=== PATIENT | male | born 1950 | race Caucasian/White ===

== ENCOUNTER 2018-08-01 03:09 | Inpatient (IN) | payer MEDICARE, BC ==
[2018-08-01] MEDS ORDERED: NACL 0.9% 3 ML SYG IV (04:30)
[2018-08-01] MEDS ORDERED: ONDANSETRON 4 MG INJ IV (04:30)
[2018-08-01] MEDS ORDERED: BISACODYL (EC) 5 MG TAB PO (04:30)
[2018-08-01] MEDS ORDERED: DOCUSATE SODIUM 100 MG CAP PO (04:30)
[2018-08-01] MEDS: FUROSEMIDE 40 MG INJ IV (05:12)
[2018-08-01] MEDS: METOLAZONE 2.5 MG TAB PO (05:12)
[2018-08-01 05:34] LABS: ADD MAN DIFF? NO
[2018-08-01 05:36] LABS: HAAIG REFLEX REFLEX FILED
[2018-08-01 05:38] LABS: WHITE BLOOD COUNT 10.3 10^3/ul (4.8-10.8)
[2018-08-01 05:38] LABS: BASOPHILS % 0.2 % (0.0-2.0); EOSINOPHILS % 0.4 % (0.0-7.0); HEMATOCRIT 46.1 % (42.0-52.0); HEMOGLOBIN 14.8 g/dl (14.0-18.0); LYMPHOCYTES % 9.8 % (15.0-51.0); MEAN CORPUSCULAR HEMOGLOBIN 31.3 pg (29.0-33.0); MEAN CORPUSCULAR HGB CONC 32.1 g/dl (32.0-37.0); MEAN CORPUSCULAR VOLUME 97.5 fl (82.0-101.0); MEAN PLATELET VOLUME 10.6 fl (7.4-10.4); MONOCYTE # 0.8 10^3/ul (0.3-0.9); MONOCYTES % 7.5 % (0.0-11.0); NEUTROPHIL # 8.3 10^3/ul (1.6-7.5); NEUTROPHILS % 81.1 % (39.0-77.0); PLATELET COUNT 192 10^3/UL (140-415); RED BLOOD COUNT 4.73 10^6/ul (4.70-6.10); RED CELL DISTRIBUTION WIDTH 12.7 % (11.5-14.5)
[2018-08-01 05:59] LABS: HEMOGLOBIN A1C 4.5 % (0-5.9)
[2018-08-01 06:04] LABS: ALANINE AMINOTRANSFERASE 22 IU/L (13-69); ALBUMIN 3.7 g/dl (3.3-4.9); ALBUMIN/GLOBULIN RATIO 1.42; ALKALINE PHOSPHATASE 52 IU/L (42-121); ANION GAP 10 (5-13); ASPARTATE AMINO TRANSFERASE 24 IU/L (15-46); BILIRUBIN,INDIRECT 1.1 mg/dl (0-1.1); BILIRUBIN,TOTAL 1.1 mg/dl (0.2-1.3); BLOOD UREA NITROGEN 73 mg/dl (7-20); CALCIUM 9.1 mg/dl (8.4-10.2); CARBON DIOXIDE 19 mmol/L (21-31); CHLORIDE 119 mmol/L (97-110); CREATININE 3.07 mg/dl (0.61-1.24); Estimated GFR 20 mL/min (>60); GLUCOSE 101 mg/dl (70-220); MAGNESIUM 2.4 mg/dl (1.7-2.5); POTASSIUM 5.2 mmol/L (3.5-5.1); SODIUM 148 mmol/L (135-144); TOTAL PROTEIN 6.3 g/dl (6.1-8.1)
[2018-08-01 06:06] LABS: URIC ACID 10.9 mg/dl (3.1-7.9)
[2018-08-01 06:17] LABS: AMMONIA < 9 umol/l (9-30)
[2018-08-01 06:30] LABS: CHOLESTEROL 170 mg/dl (100-200)
[2018-08-01 06:30] LABS: CHOL/HDL RATIO 3.4 RATIO; HDL CHOLESTEROL 50 mg/dl (30-78); LDL CHOLESTEROL,CALCULATED 106 mg/dl; TRIGLYCERIDES 72 mg/dl (0-149)
[2018-08-01 06:40] LABS: B-TYPE NATRIURETIC PEPTIDE 1070 PG/ML (0-125)
[2018-08-01 07:10] LABS: HEPATITIS B SURFACE ANTIGEN NEGATIVE (NEGATIVE)
[2018-08-01 07:26] LABS: HEPATITIS B SURFACE ANTIBODY NEGATIVE (NEGATIVE)
[2018-08-01 07:27] LABS: HEPATITIS B CORE ANTIBODY NEGATIVE (NEGATIVE); HEPATITIS C VIRAL ANTIBODY NEGATIVE (NEGATIVE)
[2018-08-01 08:13] LABS: OSMOLALITY 323 mOsm/kg (280-295)
[2018-08-01 10:35] LABS: ADD UMIC YES; UR ASCORBIC ACID NEGATIVE (NEGATIVE); UR BILIRUBIN (Dip) NEGATIVE (NEGATIVE); UR BLOOD (Dip) 1+ mg/dL (NEGATIVE); UR CLARITY CLEAR (CLEAR); UR COLOR COLORLESS (YELLOW); UR GLUCOSE (Dip) NEGATIVE (NEGATIVE); UR KETONES (Dip) NEGATIVE (NEGATIVE); UR LEUKOCYTE ESTERASE (Dip) NEGATIVE Leu/ul (NEGATIVE); UR MUCUS FEW /HPF (NONE SEEN); UR NITRITE (Dip) NEGATIVE (NEGATIVE); UR RBC 0 /HPF (0-5); UR SPECIFIC GRAVITY (Dip) 1.006 (1.003-1.030); UR TOTAL PROTEIN (Dip) NEGATIVE (NEGATIVE); UR UROBILINOGEN (Dip) NEGATIVE (NEGATIVE); UR WBC 0 /HPF (0-5)
[2018-08-01] MEDS: DEXTROSE 5%-0.45% NACL 1,000 ML IV ×2 (10:39→22:30)
[2018-08-01 11:10] LABS: OSMOLALITY,URINE 323 mOsm/kg (250-1200)
[2018-08-01 11:14] LABS: SODIUM,URINE RANDOM 135 mmol/L (30-90)
[2018-08-01 11:14] LABS: CREATININE,URINE RANDOM 13.21 mg/dl (20-370)
[2018-08-01 11:15] LABS: CREATININE,URINE RANDOM 12.94 mg/dl (20-370); PROTEIN/CREAT RATIO 1.23 RATIO
[2018-08-01 12:15] LABS: COMPLEMENT C3 71 mg/dl (88-165)
[2018-08-01 12:15] LABS: COMPLEMENT C4 26 mg/dl (14-44)
[2018-08-01] MEDS: LORAZEPAM 2 MG INJ IV (16:58)
[2018-08-01] MEDS: LORAZEPAM 1 MG TAB PO (22:05)
[2018-08-02] MEDS: DEXTROSE 5%-0.45% NACL 1,000 ML IV ×2 (01:37→10:52)
[2018-08-02 06:19] LABS: ADD MAN DIFF? NO
[2018-08-02 06:29] LABS: WHITE BLOOD COUNT 10.8 10^3/ul (4.8-10.8)
[2018-08-02 06:29] LABS: BASOPHILS % 0.3 % (0.0-2.0); EOSINOPHILS % 0.2 % (0.0-7.0); HEMATOCRIT 48.4 % (42.0-52.0); HEMOGLOBIN 15.6 g/dl (14.0-18.0); LYMPHOCYTES # 0.9 10^3/ul (0.8-2.9); LYMPHOCYTES % 8.7 % (15.0-51.0); MEAN CORPUSCULAR HGB CONC 32.2 g/dl (32.0-37.0); MEAN PLATELET VOLUME 11.1 fl (7.4-10.4); MONOCYTE # 0.8 10^3/ul (0.3-0.9); MONOCYTES % 7.4 % (0.0-11.0); NEUTROPHIL # 8.8 10^3/ul (1.6-7.5); NEUTROPHILS % 82.2 % (39.0-77.0); PLATELET COUNT 208 10^3/UL (140-415); RED BLOOD COUNT 5.04 10^6/ul (4.70-6.10); RED CELL DISTRIBUTION WIDTH 12.5 % (11.5-14.5)
[2018-08-02 06:53] LABS: ANION GAP 11 (5-13); BLOOD UREA NITROGEN 78 mg/dl (7-20); CALCIUM 9.2 mg/dl (8.4-10.2); CARBON DIOXIDE 21 mmol/L (21-31); CHLORIDE 114 mmol/L (97-110); Estimated GFR 24 mL/min (>60); GLUCOSE 120 mg/dl (70-220); POTASSIUM 4.4 mmol/L (3.5-5.1); SODIUM 146 mmol/L (135-144)
[2018-08-02 07:06] LABS: MAGNESIUM 2.2 mg/dl (1.7-2.5)
[2018-08-02 07:06] LABS: PHOSPHORUS 4.8 mg/dl (2.5-4.9)
[2018-08-02 07:16] LABS: HEMOGLOBIN A1C 4.5 % (0-5.9)
[2018-08-02] MEDS: LEVETIRACETAM 1000 MG (PMX) 100 ML IVPB (12:30)
[2018-08-02] MEDS: LEVETIRACETAM 500 MG TAB PO ×2 (12:32→20:55)
[2018-08-02] MEDS: hydrALAzine 20 MG INJ IV (15:32)
[2018-08-03] MEDS: DEXTROSE 5%-0.45% NACL 1,000 ML IV ×3 (00:54→15:05)
[2018-08-03] MEDS: LORAZEPAM 2 MG INJ IV (01:59)
[2018-08-03] MEDS: LEVETIRACETAM 500 MG TAB PO (08:40)
[2018-08-03 10:52] LABS: HAAIG REFLEX REFLEX FILED
[2018-08-03 11:34] LABS: ANION GAP 17 (5-13); BLOOD UREA NITROGEN 79 mg/dl (7-20); CALCIUM 9.1 mg/dl (8.4-10.2); CARBON DIOXIDE 15 mmol/L (21-31); CHLORIDE 110 mmol/L (97-110); CREATININE 3.23 mg/dl (0.61-1.24); Estimated GFR 19 mL/min (>60); GLUCOSE 132 mg/dl (70-220); POTASSIUM 3.9 mmol/L (3.5-5.1); SODIUM 142 mmol/L (135-144)
[2018-08-03 11:45] LABS: COMPLEMENT C3 88 mg/dl (88-165); COMPLEMENT C4 34 mg/dl (14-44)
[2018-08-03 12:06] LABS: HEPATITIS B SURFACE ANTIGEN NEGATIVE (NEGATIVE)
[2018-08-03 12:24] LABS: HEPATITIS B CORE ANTIBODY NEGATIVE (NEGATIVE); HEPATITIS C VIRAL ANTIBODY NEGATIVE (NEGATIVE)
[2018-08-03 13:16] LABS: ANA SCREEN NEGATIVE (NEGATIVE)
[2018-08-03 14:47] LABS: CREATININE, RANDOM URINE 13 mg/dL (20-320); MICROALBUMIN 2.3 mg/dL; MICROALBUMIN/CREATININE RATIO 177 (<30)
[2018-08-03] MEDS: LEVETIRACETAM 750 MG TAB PO (22:19)
[2018-08-04 05:37] LABS: ADD MAN DIFF? NO
[2018-08-04 05:44] LABS: WHITE BLOOD COUNT 9.9 10^3/ul (4.8-10.8)
[2018-08-04 05:44] LABS: BASOPHILS % 0.4 % (0.0-2.0); EOSINOPHILS # 0.1 10^3/ul (0.0-0.5); EOSINOPHILS % 0.8 % (0.0-7.0); HEMOGLOBIN 15.9 g/dl (14.0-18.0); LYMPHOCYTES # 1.1 10^3/ul (0.8-2.9); LYMPHOCYTES % 11.5 % (15.0-51.0); MEAN CORPUSCULAR HEMOGLOBIN 30.7 pg (29.0-33.0); MEAN CORPUSCULAR HGB CONC 32.4 g/dl (32.0-37.0); MEAN CORPUSCULAR VOLUME 94.6 fl (82.0-101.0); MEAN PLATELET VOLUME 10.7 fl (7.4-10.4); MONOCYTES % 9.8 % (0.0-11.0); NEUTROPHIL # 7.5 10^3/ul (1.6-7.5); NEUTROPHILS % 76.1 % (39.0-77.0); PLATELET COUNT 206 10^3/UL (140-415); RED BLOOD COUNT 5.18 10^6/ul (4.70-6.10); RED CELL DISTRIBUTION WIDTH 12.3 % (11.5-14.5)
[2018-08-04 05:58] LABS: ANION GAP 13 (5-13); BLOOD UREA NITROGEN 80 mg/dl (7-20); CALCIUM 8.9 mg/dl (8.4-10.2); CARBON DIOXIDE 19 mmol/L (21-31); CHLORIDE 109 mmol/L (97-110); CREATININE 2.97 mg/dl (0.61-1.24); Estimated GFR 21 mL/min (>60); GLUCOSE 106 mg/dl (70-220); MAGNESIUM 2.1 mg/dl (1.7-2.5); PHOSPHORUS 4.7 mg/dl (2.5-4.9); POTASSIUM 3.9 mmol/L (3.5-5.1); SODIUM 141 mmol/L (135-144)
[2018-08-04] MEDS: METOPROLOL 25 MG TAB PO (09:42)
[2018-08-04] MEDS: LEVETIRACETAM 750 MG TAB PO (09:42)
[2018-08-04] MEDS: BENAZEPRIL 5 MG TAB PO (09:42)
[2018-08-04 13:57] LABS: ANCA SCREEN NEGATIVE (NEGATIVE)
[2018-08-04 17:01] LABS: MYELOPEROXIDASE ANTIBODY <1.0 AI; PROTEINASE-3 ANTIBODY <1.0 AI
[2018-08-04] MEDS: PHENYTOIN 1,250 MG in SOD CHLORIDE 0.9% 150 ML IV (17:22)
[2018-08-04 17:44] LABS: PHENYTOIN (DILANTIN) < 3.0 ug/ml (10.0-20.0)
[2018-08-04 18:31] LABS: ANA SCREEN POSITIVE (NEGATIVE)
[2018-08-04 19:16] LABS: ANA PATTERN HOMOGENEOUS; ANA TITER 1:40 titer
[2018-08-04] MEDS ORDERED: PHENYTOIN 100 MG INJ IV (22:00)
[2018-08-05 06:05] LABS: ADD MAN DIFF? NO
[2018-08-05 06:12] LABS: BASOPHILS % 0.3 % (0.0-2.0); EOSINOPHILS # 0.1 10^3/ul (0.0-0.5); EOSINOPHILS % 0.9 % (0.0-7.0); HEMATOCRIT 47.9 % (42.0-52.0); HEMOGLOBIN 15.5 g/dl (14.0-18.0); LYMPHOCYTES # 1.1 10^3/ul (0.8-2.9); LYMPHOCYTES % 9.2 % (15.0-51.0); MEAN CORPUSCULAR HEMOGLOBIN 31.1 pg (29.0-33.0); MEAN CORPUSCULAR HGB CONC 32.4 g/dl (32.0-37.0); MEAN CORPUSCULAR VOLUME 96.2 fl (82.0-101.0); MONOCYTE # 1.3 10^3/ul (0.3-0.9); MONOCYTES % 11.2 % (0.0-11.0); NEUTROPHIL # 8.9 10^3/ul (1.6-7.5); NEUTROPHILS % 77.3 % (39.0-77.0); PLATELET COUNT 181 10^3/UL (140-415); RED BLOOD COUNT 4.98 10^6/ul (4.70-6.10); RED CELL DISTRIBUTION WIDTH 12.5 % (11.5-14.5)
[2018-08-05 06:12] LABS: WHITE BLOOD COUNT 11.5 10^3/ul (4.8-10.8)
[2018-08-05 06:37] LABS: PHENYTOIN (DILANTIN) 5.5 ug/ml (10.0-20.0)
[2018-08-05 06:54] LABS: ANION GAP 11 (5-13); BLOOD UREA NITROGEN 85 mg/dl (7-20); CALCIUM 8.9 mg/dl (8.4-10.2); CARBON DIOXIDE 20 mmol/L (21-31); CHLORIDE 110 mmol/L (97-110); CREATININE 3.26 mg/dl (0.61-1.24); Estimated GFR 19 mL/min (>60); GLUCOSE 90 mg/dl (70-220); MAGNESIUM 2.2 mg/dl (1.7-2.5); PHOSPHORUS 5.2 mg/dl (2.5-4.9); POTASSIUM 4.4 mmol/L (3.5-5.1); SODIUM 141 mmol/L (135-144)
[2018-08-05] MEDS: PHENYTOIN 100 MG INJ IV ×3 (07:08→21:15)
[2018-08-05] MEDS: PHENYTOIN 500 MG in SOD CHLORIDE 0.9% 100 ML IV (08:51)
[2018-08-05] MEDS: METOPROLOL 25 MG TAB PO (09:50)
[2018-08-05] MEDS: BENAZEPRIL 5 MG TAB PO (09:50)
[2018-08-05 14:14] LABS: PHENYTOIN (DILANTIN) 14.3 ug/ml (10.0-20.0)
[2018-08-05] MEDS: LORAZEPAM 1 MG TAB PO (21:15)
[2018-08-06 06:11] LABS: ADD MAN DIFF? NO
[2018-08-06 06:16] LABS: BASOPHILS % 0.4 % (0.0-2.0); EOSINOPHILS # 0.2 10^3/ul (0.0-0.5); EOSINOPHILS % 1.8 % (0.0-7.0); HEMATOCRIT 48.9 % (42.0-52.0); HEMOGLOBIN 15.5 g/dl (14.0-18.0); LYMPHOCYTES # 0.9 10^3/ul (0.8-2.9); LYMPHOCYTES % 8.7 % (15.0-51.0); MEAN CORPUSCULAR HEMOGLOBIN 30.8 pg (29.0-33.0); MEAN CORPUSCULAR HGB CONC 31.7 g/dl (32.0-37.0); MEAN PLATELET VOLUME 11.4 fl (7.4-10.4); MONOCYTE # 1.4 10^3/ul (0.3-0.9); MONOCYTES % 13.2 % (0.0-11.0); NEUTROPHIL # 8.1 10^3/ul (1.6-7.5); NEUTROPHILS % 74.5 % (39.0-77.0); PLATELET COUNT 171 10^3/UL (140-415); RED BLOOD COUNT 5.04 10^6/ul (4.70-6.10); RED CELL DISTRIBUTION WIDTH 12.5 % (11.5-14.5)
[2018-08-06 06:16] LABS: WHITE BLOOD COUNT 10.9 10^3/ul (4.8-10.8)
[2018-08-06 06:46] LABS: ANION GAP 12 (5-13); BLOOD UREA NITROGEN 92 mg/dl (7-20); CALCIUM 8.9 mg/dl (8.4-10.2); CARBON DIOXIDE 20 mmol/L (21-31); CHLORIDE 110 mmol/L (97-110); CREATININE 3.36 mg/dl (0.61-1.24); Estimated GFR 18 mL/min (>60); GLUCOSE 101 mg/dl (70-220); MAGNESIUM 2.2 mg/dl (1.7-2.5); PHOSPHORUS 4.6 mg/dl (2.5-4.9); POTASSIUM 4.7 mmol/L (3.5-5.1); SODIUM 142 mmol/L (135-144)
[2018-08-06] MEDS: METOPROLOL 25 MG TAB PO (08:33)
[2018-08-06] MEDS: PHENYTOIN 100 MG INJ IV ×2 (08:34→22:15)
[2018-08-06 10:47] LABS: PHENYTOIN (DILANTIN) 9.1 ug/ml (10.0-20.0)
[2018-08-06 16:48] LABS: ANTI-DNA (DOUBLE STRANDED) <95 U/mL (< 301)
[2018-08-07] MEDS: LORAZEPAM 2 MG INJ IV (05:35)
[2018-08-07 05:39] LABS: ADD MAN DIFF? NO
[2018-08-07 05:48] LABS: WHITE BLOOD COUNT 11.5 10^3/ul (4.8-10.8)
[2018-08-07 05:48] LABS: BASOPHIL # 0.1 10^3/ul (0.0-0.1); BASOPHILS % 0.7 % (0.0-2.0); EOSINOPHILS # 0.2 10^3/ul (0.0-0.5); HEMATOCRIT 50.1 % (42.0-52.0); LYMPHOCYTES # 1.2 10^3/ul (0.8-2.9); MEAN CORPUSCULAR HEMOGLOBIN 31.2 pg (29.0-33.0); MEAN CORPUSCULAR HGB CONC 31.9 g/dl (32.0-37.0); MEAN CORPUSCULAR VOLUME 97.7 fl (82.0-101.0); MONOCYTE # 1.2 10^3/ul (0.3-0.9); MONOCYTES % 10.6 % (0.0-11.0); NEUTROPHIL # 8.7 10^3/ul (1.6-7.5); NEUTROPHILS % 75.7 % (39.0-77.0); PLATELET COUNT 154 10^3/UL (140-415); RED BLOOD COUNT 5.13 10^6/ul (4.70-6.10); RED CELL DISTRIBUTION WIDTH 12.6 % (11.5-14.5)
[2018-08-07 06:35] LABS: ANION GAP 11 (5-13); BLOOD UREA NITROGEN 91 mg/dl (7-20); CALCIUM 9.2 mg/dl (8.4-10.2); CARBON DIOXIDE 21 mmol/L (21-31); CHLORIDE 113 mmol/L (97-110); CREATININE 3.14 mg/dl (0.61-1.24); Estimated GFR 20 mL/min (>60); GLUCOSE 98 mg/dl (70-220); MAGNESIUM 2.4 mg/dl (1.7-2.5); PHOSPHORUS 4.3 mg/dl (2.5-4.9); POTASSIUM 5.5 mmol/L (3.5-5.1); SODIUM 145 mmol/L (135-144)
[2018-08-07] MEDS: PHENYTOIN 100 MG INJ IV (09:24)
[2018-08-07] MEDS: SOD CHLORIDE 0.45% 1,000 ML IV (09:25)
[2018-08-07] MEDS: METOPROLOL 25 MG TAB PO (09:25)
[2018-08-07] MEDS: NA POLYST SULFON 15 GM/60 ML BTL PO ×2 (11:03→12:52)
[2018-08-07] MEDS ORDERED: PHENOBARBITAL 65 MG INJ IVPB (11:30)
[2018-08-07] MEDS: DEXTROSE 5% IV (12:53)
[2018-08-07] MEDS: PHENOBARBITAL IV (12:53)
[2018-08-07 15:02] LABS: POTASSIUM 4.9 mmol/L (3.5-5.1)
[2018-08-07 16:06] LABS: HEPATITIS B DELTA ANTIBODY NEGATIVE
[2018-08-07] MEDS: PHENOBARBITAL 32.4 MG TAB PO (21:12)
[2018-08-08] MEDS: SOD CHLORIDE 0.45% 1,000 ML IV ×2 (04:20→17:45)
[2018-08-08 06:21] LABS: PHENOBARBITAL 17.7 mg/L (15.0-40.0)
[2018-08-08 08:24] LABS: ADD MAN DIFF? NO
[2018-08-08 08:33] LABS: BASOPHILS % 0.4 % (0.0-2.0); EOSINOPHILS # 0.3 10^3/ul (0.0-0.5); EOSINOPHILS % 2.6 % (0.0-7.0); HEMATOCRIT 46.6 % (42.0-52.0); LYMPHOCYTES # 1.1 10^3/ul (0.8-2.9); LYMPHOCYTES % 10.4 % (15.0-51.0); MEAN CORPUSCULAR HEMOGLOBIN 31.5 pg (29.0-33.0); MEAN CORPUSCULAR HGB CONC 32.2 g/dl (32.0-37.0); MEAN CORPUSCULAR VOLUME 97.9 fl (82.0-101.0); MEAN PLATELET VOLUME 11.9 fl (7.4-10.4); MONOCYTE # 1.1 10^3/ul (0.3-0.9); NEUTROPHIL # 7.6 10^3/ul (1.6-7.5); NEUTROPHILS % 74.4 % (39.0-77.0); PLATELET COUNT 142 10^3/UL (140-415); RED BLOOD COUNT 4.76 10^6/ul (4.70-6.10); RED CELL DISTRIBUTION WIDTH 12.5 % (11.5-14.5)
[2018-08-08 08:33] LABS: WHITE BLOOD COUNT 10.2 10^3/ul (4.8-10.8)
[2018-08-08 08:58] LABS: ANION GAP 13 (5-13); BLOOD UREA NITROGEN 81 mg/dl (7-20); CALCIUM 8.9 mg/dl (8.4-10.2); CARBON DIOXIDE 20 mmol/L (21-31); CHLORIDE 112 mmol/L (97-110); CREATININE 2.87 mg/dl (0.61-1.24); Estimated GFR 22 mL/min (>60); GLUCOSE 83 mg/dl (70-220); MAGNESIUM 2.3 mg/dl (1.7-2.5); PHOSPHORUS 4.8 mg/dl (2.5-4.9); POTASSIUM 4.3 mmol/L (3.5-5.1); SODIUM 145 mmol/L (135-144)
[2018-08-08] MEDS: METOPROLOL 25 MG TAB PO (09:43)
[2018-08-08] MEDS: PHENOBARBITAL 32.4 MG TAB PO ×2 (09:43→20:57)
[2018-08-08 20:07] LABS: % CRYOCRIT NONE DETECTED (NONE DETECTED)
[2018-08-09] MEDS: SOD CHLORIDE 0.45% 1,000 ML IV ×3 (00:55→18:45)
[2018-08-09 06:06] LABS: ADD MAN DIFF? NO
[2018-08-09 06:07] LABS: WHITE BLOOD COUNT 10.9 10^3/ul (4.8-10.8)
[2018-08-09 06:07] LABS: BASOPHIL # 0.1 10^3/ul (0.0-0.1); BASOPHILS % 0.5 % (0.0-2.0); EOSINOPHILS # 0.2 10^3/ul (0.0-0.5); EOSINOPHILS % 1.9 % (0.0-7.0); HEMATOCRIT 44.3 % (42.0-52.0); HEMOGLOBIN 14.5 g/dl (14.0-18.0); LYMPHOCYTES # 0.9 10^3/ul (0.8-2.9); LYMPHOCYTES % 8.4 % (15.0-51.0); MEAN CORPUSCULAR HGB CONC 32.7 g/dl (32.0-37.0); MEAN CORPUSCULAR VOLUME 94.9 fl (82.0-101.0); MEAN PLATELET VOLUME 11.5 fl (7.4-10.4); MONOCYTE # 1.3 10^3/ul (0.3-0.9); MONOCYTES % 11.7 % (0.0-11.0); NEUTROPHIL # 8.3 10^3/ul (1.6-7.5); NEUTROPHILS % 76.6 % (39.0-77.0); PLATELET COUNT 141 10^3/UL (140-415); RED BLOOD COUNT 4.67 10^6/ul (4.70-6.10); RED CELL DISTRIBUTION WIDTH 12.6 % (11.5-14.5)
[2018-08-09 07:11] LABS: PHENOBARBITAL 21.6 mg/L (15.0-40.0)
[2018-08-09 07:13] LABS: ANION GAP 11 (5-13); BLOOD UREA NITROGEN 78 mg/dl (7-20); CALCIUM 8.8 mg/dl (8.4-10.2); CARBON DIOXIDE 20 mmol/L (21-31); CHLORIDE 114 mmol/L (97-110); CREATININE 2.57 mg/dl (0.61-1.24); Estimated GFR 25 mL/min (>60); GLUCOSE 97 mg/dl (70-220); MAGNESIUM 2.2 mg/dl (1.7-2.5); PHOSPHORUS 3.9 mg/dl (2.5-4.9); POTASSIUM 4.3 mmol/L (3.5-5.1); SODIUM 145 mmol/L (135-144)
[2018-08-09] MEDS: METOPROLOL 25 MG TAB PO (08:36)
[2018-08-09] MEDS: PHENOBARBITAL 32.4 MG TAB PO ×2 (08:36→21:36)
[2018-08-09] MEDS ORDERED: APIXABAN 5 MG TABLET PO (14:00)
[2018-08-09] MEDS: APIXABAN 5 MG TABLET PO ×2 (14:06→23:21)
[2018-08-09] MEDS: ACETAMINOPHEN 325 MG TAB PO (16:40)
[2018-08-09 17:16] LABS: ADD UMIC YES; UR ASCORBIC ACID NEGATIVE (NEGATIVE); UR BILIRUBIN (Dip) NEGATIVE (NEGATIVE); UR BLOOD (Dip) 1+ mg/dL (NEGATIVE); UR CLARITY CLEAR (CLEAR); UR COLOR STRAW (YELLOW); UR GLUCOSE (Dip) NEGATIVE (NEGATIVE); UR KETONES (Dip) NEGATIVE (NEGATIVE); UR LEUKOCYTE ESTERASE (Dip) NEGATIVE Leu/ul (NEGATIVE); UR NITRITE (Dip) NEGATIVE (NEGATIVE); UR RBC 1 /HPF (0-5); UR SPECIFIC GRAVITY (Dip) 1.009 (1.003-1.030); UR TOTAL PROTEIN (Dip) NEGATIVE (NEGATIVE); UR UROBILINOGEN (Dip) NEGATIVE (NEGATIVE); UR WBC 0 /HPF (0-5)
[2018-08-10] MEDS: ACETAMINOPHEN 325 MG TAB PO (00:18)
[2018-08-10] MEDS: SOD CHLORIDE 0.45% 1,000 ML IV ×3 (06:36→19:45)
[2018-08-10 08:50] LABS: ANION GAP 10 (5-13); BLOOD UREA NITROGEN 71 mg/dl (7-20); CALCIUM 9.3 mg/dl (8.4-10.2); CARBON DIOXIDE 23 mmol/L (21-31); CHLORIDE 111 mmol/L (97-110); CREATININE 2.58 mg/dl (0.61-1.24); Estimated GFR 25 mL/min (>60); GLUCOSE 100 mg/dl (70-220); POTASSIUM 4.8 mmol/L (3.5-5.1); SODIUM 144 mmol/L (135-144)
[2018-08-10] MEDS: METOPROLOL 25 MG TAB PO (09:07)
[2018-08-10] MEDS: APIXABAN 5 MG TABLET PO ×2 (09:07→20:53)
[2018-08-10] MEDS: PHENOBARBITAL 32.4 MG TAB PO ×2 (09:07→20:54)
[2018-08-10] MEDS: LORAZEPAM 2 MG INJ IV (23:19)
[2018-08-11] MEDS: hydrALAzine 20 MG INJ IV (04:50)
[2018-08-11] MEDS: ACETAMINOPHEN 325 MG TAB PO ×3 (04:51→08:17)
[2018-08-11 06:58] LABS: PHENOBARBITAL 22.6 mg/L (15.0-40.0)
[2018-08-11] MEDS: PHENOBARBITAL 32.4 MG TAB PO ×2 (08:18→22:17)
[2018-08-11] MEDS: METOPROLOL 25 MG TAB PO (08:18)
[2018-08-11] MEDS: SOD CHLORIDE 0.45% 1,000 ML IV (08:23)
[2018-08-11] MEDS: APIXABAN 5 MG TABLET PO ×2 (09:36→22:17)
[2018-08-11 10:33] LABS: ADD MAN DIFF? NO
[2018-08-11 10:36] LABS: WHITE BLOOD COUNT 14.5 10^3/ul (4.8-10.8)
[2018-08-11 10:36] LABS: BASOPHIL # 0.1 10^3/ul (0.0-0.1); BASOPHILS % 0.3 % (0.0-2.0); EOSINOPHILS % 0.1 % (0.0-7.0); HEMATOCRIT 42.3 % (42.0-52.0); HEMOGLOBIN 13.9 g/dl (14.0-18.0); LYMPHOCYTES # 0.8 10^3/ul (0.8-2.9); LYMPHOCYTES % 5.2 % (15.0-51.0); MEAN CORPUSCULAR HEMOGLOBIN 30.8 pg (29.0-33.0); MEAN CORPUSCULAR HGB CONC 32.9 g/dl (32.0-37.0); MEAN CORPUSCULAR VOLUME 93.8 fl (82.0-101.0); MEAN PLATELET VOLUME 11.7 fl (7.4-10.4); MONOCYTE # 1.3 10^3/ul (0.3-0.9); MONOCYTES % 9.2 % (0.0-11.0); NEUTROPHIL # 12.2 10^3/ul (1.6-7.5); NEUTROPHILS % 84.4 % (39.0-77.0); PLATELET COUNT 197 10^3/UL (140-415); RED BLOOD COUNT 4.51 10^6/ul (4.70-6.10); RED CELL DISTRIBUTION WIDTH 12.5 % (11.5-14.5)
[2018-08-11 12:27] LABS: ANION GAP 11 (5-13); BLOOD UREA NITROGEN 67 mg/dl (7-20); CALCIUM 9.2 mg/dl (8.4-10.2); CARBON DIOXIDE 17 mmol/L (21-31); CHLORIDE 113 mmol/L (97-110); CREATININE 2.81 mg/dl (0.61-1.24); Estimated GFR 23 mL/min (>60); GLUCOSE 140 mg/dl (70-220); PHOSPHORUS 3.2 mg/dl (2.5-4.9); POTASSIUM 4.2 mmol/L (3.5-5.1); SODIUM 141 mmol/L (135-144)
[2018-08-11] MEDS: PIPER-TAZO 3.375 GM IV (PMX) 100 ML IVPB ×2 (15:11→22:16)
[2018-08-12 04:36] LABS: PHENOBARBITAL 24.9 mg/L (15.0-40.0)
[2018-08-12] MEDS: PIPER-TAZO 3.375 GM IV (PMX) 100 ML IVPB ×3 (05:37→21:56)
[2018-08-12 08:46] LABS: ADD MAN DIFF? NO
[2018-08-12] MEDS: SOD CHLORIDE 0.45% 1,000 ML IV (08:52)
[2018-08-12] MEDS: PHENOBARBITAL 32.4 MG TAB PO (08:53)
[2018-08-12] MEDS: APIXABAN 5 MG TABLET PO ×2 (08:53→20:47)
[2018-08-12 08:56] LABS: BASOPHILS % 0.3 % (0.0-2.0); EOSINOPHILS # 0.1 10^3/ul (0.0-0.5); EOSINOPHILS % 0.7 % (0.0-7.0); HEMATOCRIT 42.6 % (42.0-52.0); HEMOGLOBIN 13.9 g/dl (14.0-18.0); LYMPHOCYTES % 8.1 % (15.0-51.0); MEAN CORPUSCULAR HGB CONC 32.6 g/dl (32.0-37.0); MEAN CORPUSCULAR VOLUME 94.9 fl (82.0-101.0); MEAN PLATELET VOLUME 12.2 fl (7.4-10.4); MONOCYTE # 1.2 10^3/ul (0.3-0.9); MONOCYTES % 9.9 % (0.0-11.0); PLATELET COUNT 212 10^3/UL (140-415); RED BLOOD COUNT 4.49 10^6/ul (4.70-6.10); RED CELL DISTRIBUTION WIDTH 12.7 % (11.5-14.5)
[2018-08-12 08:56] LABS: WHITE BLOOD COUNT 12.5 10^3/ul (4.8-10.8)
[2018-08-12] MEDS: METOPROLOL 25 MG TAB PO (08:58)
[2018-08-12 09:09] LABS: ANION GAP 17 (5-13); BLOOD UREA NITROGEN 68 mg/dl (7-20); CALCIUM 9.4 mg/dl (8.4-10.2); CARBON DIOXIDE 15 mmol/L (21-31); CHLORIDE 116 mmol/L (97-110); CREATININE 2.92 mg/dl (0.61-1.24); Estimated GFR 22 mL/min (>60); GLUCOSE 98 mg/dl (70-220); MAGNESIUM 2.3 mg/dl (1.7-2.5); POTASSIUM 4.1 mmol/L (3.5-5.1); SODIUM 148 mmol/L (135-144)
[2018-08-12] MEDS: DEXTROSE 5% 1,000 ML IV (12:24)
[2018-08-12] MEDS: ACETAMINOPHEN 325 MG TAB PO (13:29)
[2018-08-12 16:38] LABS: ADD UMIC YES; UR ASCORBIC ACID NEGATIVE (NEGATIVE); UR BILIRUBIN (Dip) NEGATIVE (NEGATIVE); UR BLOOD (Dip) 1+ mg/dL (NEGATIVE); UR CLARITY CLEAR (CLEAR); UR COLOR YELLOW (YELLOW); UR GLUCOSE (Dip) NEGATIVE (NEGATIVE); UR KETONES (Dip) NEGATIVE (NEGATIVE); UR LEUKOCYTE ESTERASE (Dip) NEGATIVE Leu/ul (NEGATIVE); UR NITRITE (Dip) NEGATIVE (NEGATIVE); UR RBC 2 /HPF (0-5); UR SPECIFIC GRAVITY (Dip) 1.011 (1.003-1.030); UR TOTAL PROTEIN (Dip) 1+ mg/dl (NEGATIVE); UR UROBILINOGEN (Dip) NEGATIVE (NEGATIVE); UR WBC 0 /HPF (0-5)
[2018-08-13] MEDS: hydrALAzine 20 MG INJ IV (03:52)
[2018-08-13] MEDS: DEXTROSE 5% 1,000 ML IV ×3 (04:04→22:39)
[2018-08-13] MEDS: PIPER-TAZO 3.375 GM IV (PMX) 100 ML IVPB ×3 (05:37→22:39)
[2018-08-13 08:04] LABS: ADD MAN DIFF? NO
[2018-08-13 08:10] LABS: WHITE BLOOD COUNT 11.3 10^3/ul (4.8-10.8)
[2018-08-13 08:10] LABS: BASOPHILS % 0.3 % (0.0-2.0); EOSINOPHILS # 0.2 10^3/ul (0.0-0.5); HEMATOCRIT 40.8 % (42.0-52.0); HEMOGLOBIN 13.2 g/dl (14.0-18.0); LYMPHOCYTES % 8.8 % (15.0-51.0); MEAN CORPUSCULAR HEMOGLOBIN 30.6 pg (29.0-33.0); MEAN CORPUSCULAR HGB CONC 32.4 g/dl (32.0-37.0); MEAN CORPUSCULAR VOLUME 94.4 fl (82.0-101.0); MEAN PLATELET VOLUME 11.8 fl (7.4-10.4); MONOCYTES % 9.1 % (0.0-11.0); NEUTROPHIL # 8.9 10^3/ul (1.6-7.5); NEUTROPHILS % 79.1 % (39.0-77.0); PLATELET COUNT 217 10^3/UL (140-415); RED BLOOD COUNT 4.32 10^6/ul (4.70-6.10); RED CELL DISTRIBUTION WIDTH 12.6 % (11.5-14.5)
[2018-08-13 08:37] LABS: ANION GAP 14 (5-13); BLOOD UREA NITROGEN 62 mg/dl (7-20); CALCIUM 9.3 mg/dl (8.4-10.2); CARBON DIOXIDE 18 mmol/L (21-31); CHLORIDE 114 mmol/L (97-110); CREATININE 2.86 mg/dl (0.61-1.24); Estimated GFR 22 mL/min (>60); GLUCOSE 111 mg/dl (70-220); MAGNESIUM 2.3 mg/dl (1.7-2.5); PHOSPHORUS 3.7 mg/dl (2.5-4.9); POTASSIUM 3.9 mmol/L (3.5-5.1); SODIUM 146 mmol/L (135-144)
[2018-08-13] MEDS: ACETAMINOPHEN 325 MG TAB PO (09:08)
[2018-08-13] MEDS: APIXABAN 5 MG TABLET PO ×2 (09:08→20:45)
[2018-08-13] MEDS: METOPROLOL 25 MG TAB PO (09:09)
[2018-08-13] MEDS ORDERED: VANCOMYCIN IV PER PHARMACY XX (12:30)
[2018-08-13] MEDS: VANCOMYCIN 1.5 GM in SOD CHLORIDE 0.9% 250 ML IVPB (15:46)
[2018-08-13] MEDS: PHENOBARBITAL 32.4 MG TAB PO (20:46)
[2018-08-14] MEDS: PIPER-TAZO 3.375 GM IV (PMX) 100 ML IVPB ×3 (05:22→21:42)
[2018-08-14 06:04] LABS: ADD MAN DIFF? NO
[2018-08-14 06:10] LABS: BASOPHILS % 0.3 % (0.0-2.0); EOSINOPHILS # 0.3 10^3/ul (0.0-0.5); EOSINOPHILS % 2.7 % (0.0-7.0); HEMATOCRIT 37.3 % (42.0-52.0); LYMPHOCYTES # 1.3 10^3/ul (0.8-2.9); LYMPHOCYTES % 13.3 % (15.0-51.0); MEAN CORPUSCULAR HEMOGLOBIN 30.7 pg (29.0-33.0); MEAN CORPUSCULAR HGB CONC 32.2 g/dl (32.0-37.0); MEAN CORPUSCULAR VOLUME 95.4 fl (82.0-101.0); MEAN PLATELET VOLUME 11.5 fl (7.4-10.4); MONOCYTE # 0.9 10^3/ul (0.3-0.9); MONOCYTES % 9.7 % (0.0-11.0); NEUTROPHIL # 6.9 10^3/ul (1.6-7.5); NEUTROPHILS % 73.3 % (39.0-77.0); PLATELET COUNT 225 10^3/UL (140-415); RED BLOOD COUNT 3.91 10^6/ul (4.70-6.10); RED CELL DISTRIBUTION WIDTH 12.5 % (11.5-14.5)
[2018-08-14 06:10] LABS: WHITE BLOOD COUNT 9.4 10^3/ul (4.8-10.8)
[2018-08-14 06:35] LABS: ANION GAP 11 (5-13); BLOOD UREA NITROGEN 60 mg/dl (7-20); CALCIUM 8.6 mg/dl (8.4-10.2); CARBON DIOXIDE 18 mmol/L (21-31); CHLORIDE 115 mmol/L (97-110); CREATININE 2.71 mg/dl (0.61-1.24); Estimated GFR 24 mL/min (>60); GLUCOSE 108 mg/dl (70-220); MAGNESIUM 2.2 mg/dl (1.7-2.5); PHOSPHORUS 3.5 mg/dl (2.5-4.9); POTASSIUM 4.2 mmol/L (3.5-5.1); SODIUM 144 mmol/L (135-144)
[2018-08-14] MEDS: APIXABAN 5 MG TABLET PO ×2 (08:44→20:14)
[2018-08-14] MEDS: METOPROLOL 25 MG TAB PO (08:45)
[2018-08-14] MEDS: DEXTROSE 5% 1,000 ML IV (13:30)
[2018-08-14] MEDS: VANCOMYCIN 1 GM 250 ML IVPB (15:07)
[2018-08-14] MEDS: PHENOBARBITAL 32.4 MG TAB PO (20:15)
[2018-08-14] MEDS: hydrALAzine 20 MG INJ IV (20:15)
[2018-08-15] MEDS: hydrALAzine 20 MG INJ IV (03:40)
[2018-08-15] MEDS: PIPER-TAZO 3.375 GM IV (PMX) 100 ML IVPB ×3 (05:41→20:47)
[2018-08-15 07:51] LABS: PHENOBARBITAL 21.1 mg/L (15.0-40.0)
[2018-08-15] MEDS: METOPROLOL 25 MG TAB PO ×2 (08:41→20:42)
[2018-08-15] MEDS: APIXABAN 5 MG TABLET PO ×2 (08:41→20:43)
[2018-08-15 09:18] LABS: ANION GAP 14 (5-13); BLOOD UREA NITROGEN 56 mg/dl (7-20); CALCIUM 8.9 mg/dl (8.4-10.2); CARBON DIOXIDE 18 mmol/L (21-31); CHLORIDE 112 mmol/L (97-110); CREATININE 2.73 mg/dl (0.61-1.24); Estimated GFR 23 mL/min (>60); GLUCOSE 100 mg/dl (70-220); MAGNESIUM 2.2 mg/dl (1.7-2.5); PHOSPHORUS 3.5 mg/dl (2.5-4.9); SODIUM 144 mmol/L (135-144)
[2018-08-15] MEDS: DEXTROSE 5% 1,000 ML IV (09:49)
[2018-08-15 10:57] LABS: ADD MAN DIFF? NO
[2018-08-15 11:11] LABS: BASOPHILS % 0.3 % (0.0-2.0); EOSINOPHILS # 0.2 10^3/ul (0.0-0.5); EOSINOPHILS % 1.9 % (0.0-7.0); HEMATOCRIT 38.9 % (42.0-52.0); HEMOGLOBIN 12.3 g/dl (14.0-18.0); LYMPHOCYTES # 1.3 10^3/ul (0.8-2.9); LYMPHOCYTES % 12.5 % (15.0-51.0); MEAN CORPUSCULAR HEMOGLOBIN 30.1 pg (29.0-33.0); MEAN CORPUSCULAR HGB CONC 31.6 g/dl (32.0-37.0); MEAN CORPUSCULAR VOLUME 95.3 fl (82.0-101.0); MEAN PLATELET VOLUME 12.1 fl (7.4-10.4); MONOCYTES % 10.3 % (0.0-11.0); NEUTROPHIL # 7.5 10^3/ul (1.6-7.5); PLATELET COUNT 250 10^3/UL (140-415); RED BLOOD COUNT 4.08 10^6/ul (4.70-6.10); RED CELL DISTRIBUTION WIDTH 12.6 % (11.5-14.5)
[2018-08-15 11:11] LABS: WHITE BLOOD COUNT 10.1 10^3/ul (4.8-10.8)
[2018-08-15] MEDS: SOD CHLORIDE 0.45% 1,000 ML IV (11:32)
[2018-08-15] MEDS: VANCOMYCIN 1 GM 250 ML IVPB (14:56)
[2018-08-15] MEDS: ACETAMINOPHEN 325 MG TAB PO (15:37)
[2018-08-15] MEDS: PHENOBARBITAL 32.4 MG TAB PO (20:42)
[2018-08-16] MEDS: HALOPERIDOL 5 MG INJ IV (00:44)
[2018-08-16] MEDS: hydrALAzine 20 MG INJ IV (00:44)
[2018-08-16] MEDS: SOD CHLORIDE 0.45% 1,000 ML IV ×3 (03:40→20:20)
[2018-08-16 06:02] LABS: ADD MAN DIFF? NO
[2018-08-16 06:04] LABS: WHITE BLOOD COUNT 9.8 10^3/ul (4.8-10.8)
[2018-08-16 06:04] LABS: BASOPHIL # 0.1 10^3/ul (0.0-0.1); BASOPHILS % 0.6 % (0.0-2.0); EOSINOPHILS # 0.1 10^3/ul (0.0-0.5); EOSINOPHILS % 1.3 % (0.0-7.0); HEMATOCRIT 38.1 % (42.0-52.0); HEMOGLOBIN 12.1 g/dl (14.0-18.0); LYMPHOCYTES % 9.9 % (15.0-51.0); MEAN CORPUSCULAR HEMOGLOBIN 30.4 pg (29.0-33.0); MEAN CORPUSCULAR HGB CONC 31.8 g/dl (32.0-37.0); MEAN CORPUSCULAR VOLUME 95.7 fl (82.0-101.0); MEAN PLATELET VOLUME 11.3 fl (7.4-10.4); MONOCYTES % 9.7 % (0.0-11.0); NEUTROPHIL # 7.6 10^3/ul (1.6-7.5); NEUTROPHILS % 77.4 % (39.0-77.0); PLATELET COUNT 267 10^3/UL (140-415); RED BLOOD COUNT 3.98 10^6/ul (4.70-6.10); RED CELL DISTRIBUTION WIDTH 12.7 % (11.5-14.5)
[2018-08-16] MEDS: PIPER-TAZO 3.375 GM IV (PMX) 100 ML IVPB ×3 (06:18→22:10)
[2018-08-16 07:14] LABS: ANION GAP 14 (5-13); BLOOD UREA NITROGEN 59 mg/dl (7-20); CARBON DIOXIDE 19 mmol/L (21-31); CHLORIDE 111 mmol/L (97-110); CREATININE 2.82 mg/dl (0.61-1.24); Estimated GFR 23 mL/min (>60); GLUCOSE 100 mg/dl (70-220); MAGNESIUM 2.3 mg/dl (1.7-2.5); PHOSPHORUS 3.9 mg/dl (2.5-4.9); POTASSIUM 4.4 mmol/L (3.5-5.1); SODIUM 144 mmol/L (135-144)
[2018-08-16] MEDS: APIXABAN 5 MG TABLET PO ×2 (08:27→22:02)
[2018-08-16] MEDS: METOPROLOL 25 MG TAB PO ×2 (08:27→22:01)
[2018-08-16] MEDS: MULTIVITAMINS THERAPEUTIC TAB PO (13:07)
[2018-08-16 14:53] LABS: VANCOMYCIN,TROUGH 18.4 ug/ml (10.0-20.0)
[2018-08-16] MEDS: VANCOMYCIN 1 GM 250 ML IVPB (15:14)
[2018-08-16 15:29] LABS: RHEUMATOID FACTOR NEGATIVE (NEGATIVE)
[2018-08-16] MEDS: PHENOBARBITAL 32.4 MG TAB PO (22:10)
[2018-08-17] MEDS: hydrALAzine 20 MG INJ IV (04:02)
[2018-08-17] MEDS: SOD CHLORIDE 0.45% 1,000 ML IV (04:49)
[2018-08-17] MEDS ORDERED: HYDROCODONE/APAP (5/325) TAB PO (06:00)
[2018-08-17 07:06] LABS: ANION GAP 14 (5-13); BLOOD UREA NITROGEN 61 mg/dl (7-20); CALCIUM 9.1 mg/dl (8.4-10.2); CARBON DIOXIDE 15 mmol/L (21-31); CHLORIDE 115 mmol/L (97-110); CREATININE 2.81 mg/dl (0.61-1.24); Estimated GFR 23 mL/min (>60); GLUCOSE 93 mg/dl (70-220); MAGNESIUM 2.3 mg/dl (1.7-2.5); PHOSPHORUS 4.6 mg/dl (2.5-4.9); POTASSIUM 4.1 mmol/L (3.5-5.1); SODIUM 144 mmol/L (135-144)
[2018-08-17] MEDS: MULTIVITAMINS THERAPEUTIC TAB PO (08:32)
[2018-08-17] MEDS: APIXABAN 5 MG TABLET PO ×2 (08:32→22:12)
[2018-08-17] MEDS: METOPROLOL 25 MG TAB PO ×2 (08:32→20:50)
[2018-08-17] MEDS: ACETAMINOPHEN 325 MG TAB PO (08:34)
[2018-08-17] MEDS: PHENOBARBITAL 32.4 MG TAB PO (20:50)
[2018-08-18] MEDS: hydrALAzine 20 MG INJ IV (04:17)
[2018-08-18] MEDS: APIXABAN 5 MG TABLET PO ×2 (08:14→20:41)
[2018-08-18] MEDS: METOPROLOL 25 MG TAB PO ×2 (08:14→20:43)
[2018-08-18] MEDS: MULTIVITAMINS THERAPEUTIC TAB PO (08:14)
[2018-08-18 08:22] LABS: ANION GAP 13 (5-13); BLOOD UREA NITROGEN 62 mg/dl (7-20); CALCIUM 9.2 mg/dl (8.4-10.2); CARBON DIOXIDE 17 mmol/L (21-31); CHLORIDE 115 mmol/L (97-110); CREATININE 2.58 mg/dl (0.61-1.24); Estimated GFR 25 mL/min (>60); GLUCOSE 112 mg/dl (70-220); MAGNESIUM 2.5 mg/dl (1.7-2.5); PHOSPHORUS 4.2 mg/dl (2.5-4.9); POTASSIUM 4.3 mmol/L (3.5-5.1); SODIUM 145 mmol/L (135-144)
[2018-08-18] MEDS: DEXTROSE 5% 1,000 ML IV (12:23)
[2018-08-18] MEDS: PHENOBARBITAL 32.4 MG TAB PO (20:42)
[2018-08-19 06:07] LABS: ADD MAN DIFF? NO
[2018-08-19 06:09] LABS: WHITE BLOOD COUNT 8.2 10^3/ul (4.8-10.8)
[2018-08-19 06:09] LABS: BASOPHILS % 0.4 % (0.0-2.0); EOSINOPHILS # 0.2 10^3/ul (0.0-0.5); EOSINOPHILS % 2.1 % (0.0-7.0); HEMATOCRIT 36.3 % (42.0-52.0); HEMOGLOBIN 11.3 g/dl (14.0-18.0); LYMPHOCYTES # 0.9 10^3/ul (0.8-2.9); LYMPHOCYTES % 11.3 % (15.0-51.0); MEAN CORPUSCULAR HGB CONC 31.1 g/dl (32.0-37.0); MEAN CORPUSCULAR VOLUME 96.3 fl (82.0-101.0); MEAN PLATELET VOLUME 11.3 fl (7.4-10.4); MONOCYTE # 0.7 10^3/ul (0.3-0.9); MONOCYTES % 7.9 % (0.0-11.0); NEUTROPHIL # 6.3 10^3/ul (1.6-7.5); NEUTROPHILS % 76.7 % (39.0-77.0); PLATELET COUNT 292 10^3/UL (140-415); RED BLOOD COUNT 3.77 10^6/ul (4.70-6.10)
[2018-08-19 06:41] LABS: ANION GAP 13 (5-13); BLOOD UREA NITROGEN 60 mg/dl (7-20); CALCIUM 8.8 mg/dl (8.4-10.2); CARBON DIOXIDE 18 mmol/L (21-31); CHLORIDE 111 mmol/L (97-110); CREATININE 2.49 mg/dl (0.61-1.24); Estimated GFR 26 mL/min (>60); GLUCOSE 105 mg/dl (70-220); MAGNESIUM 2.5 mg/dl (1.7-2.5); PHOSPHORUS 4.2 mg/dl (2.5-4.9); POTASSIUM 4.2 mmol/L (3.5-5.1); SODIUM 142 mmol/L (135-144)
[2018-08-19] MEDS: APIXABAN 5 MG TABLET PO ×2 (08:07→21:55)
[2018-08-19] MEDS: MULTIVITAMINS THERAPEUTIC TAB PO (08:07)
[2018-08-19] MEDS: METOPROLOL 25 MG TAB PO ×2 (08:08→21:55)
[2018-08-19] MEDS: DEXTROSE 5% 1,000 ML IV (08:11)
[2018-08-19] MEDS: PHENOBARBITAL 32.4 MG TAB PO (21:55)
[2018-08-20] MEDS: DEXTROSE 5% 1,000 ML IV ×2 (06:10→22:30)
[2018-08-20] MEDS: APIXABAN 5 MG TABLET PO ×2 (08:55→20:19)
[2018-08-20] MEDS: METOPROLOL 25 MG TAB PO ×2 (08:55→20:20)
[2018-08-20] MEDS: MULTIVITAMINS THERAPEUTIC TAB PO (08:55)
[2018-08-20] MEDS: PHENOBARBITAL 32.4 MG TAB PO (20:19)
[2018-08-21] MEDS: DEXTROSE 5% 1,000 ML IV (03:13)
[2018-08-21 04:41] LABS: PHENOBARBITAL 18.8 mg/L (15.0-40.0)
[2018-08-21] MEDS: APIXABAN 5 MG TABLET PO ×2 (08:32→20:14)
[2018-08-21] MEDS: MULTIVITAMINS THERAPEUTIC TAB PO (08:32)
[2018-08-21] MEDS: METOPROLOL 25 MG TAB PO ×2 (08:33→20:15)
[2018-08-21 08:59] LABS: ABNORMAL IP MESSAGE 1; ADD MAN DIFF? NO; BASOPHILS % 0.5 % (0.0-2.0); EOSINOPHILS # 0.1 10^3/ul (0.0-0.5); HEMATOCRIT 39.5 % (42.0-52.0); HEMOGLOBIN 12.5 g/dl (14.0-18.0); LYMPHOCYTES # 0.6 10^3/ul (0.8-2.9); LYMPHOCYTES % 7.7 % (15.0-51.0); MEAN CORPUSCULAR HEMOGLOBIN 30.3 pg (29.0-33.0); MEAN CORPUSCULAR HGB CONC 31.6 g/dl (32.0-37.0); MEAN CORPUSCULAR VOLUME 95.6 fl (82.0-101.0); MEAN PLATELET VOLUME 10.7 fl (7.4-10.4); MONOCYTE # 0.3 10^3/ul (0.3-0.9); MONOCYTES % 4.4 % (0.0-11.0); NEUTROPHIL # 6.5 10^3/ul (1.6-7.5); NEUTROPHILS % 84.8 % (39.0-77.0); PLATELET COUNT 366 10^3/UL (140-415); POSITIVE DIFF @See below; RED BLOOD COUNT 4.13 10^6/ul (4.70-6.10); RED CELL DISTRIBUTION WIDTH 12.6 % (11.5-14.5)
[2018-08-21 08:59] LABS: WHITE BLOOD COUNT 7.7 10^3/ul (4.8-10.8)
[2018-08-21 09:23] LABS: ANION GAP 10 (5-13); BLOOD UREA NITROGEN 49 mg/dl (7-20); CALCIUM 9.5 mg/dl (8.4-10.2); CARBON DIOXIDE 20 mmol/L (21-31); CHLORIDE 111 mmol/L (97-110); CREATININE 2.48 mg/dl (0.61-1.24); Estimated GFR 26 mL/min (>60); GLUCOSE 127 mg/dl (70-220); MAGNESIUM 2.4 mg/dl (1.7-2.5); PHOSPHORUS 3.8 mg/dl (2.5-4.9); POTASSIUM 4.4 mmol/L (3.5-5.1); SODIUM 141 mmol/L (135-144)
[2018-08-21] MEDS: AMLODIPINE 10 MG TAB PO (13:49)
[2018-08-21] MEDS: ACETAMINOPHEN 325 MG TAB PO ×2 (14:30→21:39)
[2018-08-21] MEDS: PHENOBARBITAL 32.4 MG TAB PO (20:14)
[2018-08-21] MEDS: LORAZEPAM 4 MG/ML VIAL IV (21:36)
[2018-08-21] MEDS: clonAZEPAM 0.5 MG TAB PO (23:56)
[2018-08-22 06:36] LABS: ANION GAP 11 (5-13); BLOOD UREA NITROGEN 52 mg/dl (7-20); CALCIUM 9.1 mg/dl (8.4-10.2); CARBON DIOXIDE 24 mmol/L (21-31); CHLORIDE 108 mmol/L (97-110); CREATININE 2.74 mg/dl (0.61-1.24); Estimated GFR 23 mL/min (>60); GLUCOSE 108 mg/dl (70-220); MAGNESIUM 2.4 mg/dl (1.7-2.5); PHOSPHORUS 4.1 mg/dl (2.5-4.9); POTASSIUM 4.9 mmol/L (3.5-5.1); SODIUM 143 mmol/L (135-144)
[2018-08-22] MEDS: clonAZEPAM 0.5 MG TAB PO ×2 (09:00→21:00)
[2018-08-22] MEDS: APIXABAN 5 MG TABLET PO ×2 (09:56→23:22)
[2018-08-22] MEDS: MULTIVITAMINS THERAPEUTIC TAB PO (09:56)
[2018-08-22] MEDS: METOPROLOL 25 MG TAB PO ×2 (09:57→23:22)
[2018-08-22] MEDS: AMLODIPINE 10 MG TAB PO (09:57)
[2018-08-22] MEDS: BENAZEPRIL 10 MG TAB PO (09:57)
[2018-08-22 15:38] LABS: ADD UMIC NO; UR ASCORBIC ACID NEGATIVE (NEGATIVE); UR BILIRUBIN (Dip) NEGATIVE (NEGATIVE); UR BLOOD (Dip) NEGATIVE (NEGATIVE); UR CLARITY CLEAR (CLEAR); UR COLOR YELLOW (YELLOW); UR GLUCOSE (Dip) NEGATIVE (NEGATIVE); UR KETONES (Dip) NEGATIVE (NEGATIVE); UR LEUKOCYTE ESTERASE (Dip) NEGATIVE Leu/ul (NEGATIVE); UR NITRITE (Dip) NEGATIVE (NEGATIVE); UR TOTAL PROTEIN (Dip) NEGATIVE (NEGATIVE); UR UROBILINOGEN (Dip) NEGATIVE (NEGATIVE)
[2018-08-22] MEDS: PHENOBARBITAL 32.4 MG TAB PO (21:00)
[2018-08-22] MEDS: ACETAMINOPHEN 325 MG TAB PO (23:23)
[2018-08-23] MEDS: APIXABAN 5 MG TABLET PO ×2 (09:31→21:24)
[2018-08-23] MEDS: MULTIVITAMINS THERAPEUTIC TAB PO (09:31)
[2018-08-23] MEDS: AMLODIPINE 10 MG TAB PO (09:32)
[2018-08-23] MEDS: METOPROLOL 25 MG TAB PO ×2 (09:32→21:26)
[2018-08-23] MEDS: BENAZEPRIL 10 MG TAB PO (09:32)
[2018-08-23] MEDS: PHENOBARBITAL 32.4 MG TAB PO (21:00)
[2018-08-24] MEDS: APIXABAN 5 MG TABLET PO ×2 (08:40→20:41)
[2018-08-24] MEDS: METOPROLOL 25 MG TAB PO ×2 (08:40→20:44)
[2018-08-24] MEDS: MULTIVITAMINS THERAPEUTIC TAB PO (08:40)
[2018-08-24] MEDS: BENAZEPRIL 10 MG TAB PO (08:41)
[2018-08-24] MEDS: AMLODIPINE 10 MG TAB PO (08:41)
[2018-08-24] MEDS: PHENOBARBITAL 32.4 MG TAB PO (20:44)
[2018-08-25] MEDS: AMLODIPINE 10 MG TAB PO (09:00)
[2018-08-25] MEDS: BENAZEPRIL 10 MG TAB PO (09:00)
[2018-08-25] MEDS: METOPROLOL 25 MG TAB PO ×2 (09:00→20:37)
[2018-08-25] MEDS: APIXABAN 5 MG TABLET PO ×2 (10:57→20:38)
[2018-08-25] MEDS: MULTIVITAMINS THERAPEUTIC TAB PO (10:57)
[2018-08-25] MEDS: PHENOBARBITAL 32.4 MG TAB PO (20:37)
[2018-08-26] MEDS: MULTIVITAMINS THERAPEUTIC TAB PO (08:30)
[2018-08-26] MEDS: APIXABAN 5 MG TABLET PO ×2 (08:30→21:33)
[2018-08-26] MEDS: METOPROLOL 25 MG TAB PO ×2 (08:30→21:33)
[2018-08-26] MEDS: BENAZEPRIL 10 MG TAB PO (08:31)
[2018-08-26] MEDS: AMLODIPINE 10 MG TAB PO (08:31)
[2018-08-26 14:27] LABS: ADD MAN DIFF? NO
[2018-08-26 14:33] LABS: BASOPHIL # 0.1 10^3/ul (0.0-0.1); BASOPHILS % 0.5 % (0.0-2.0); EOSINOPHILS % 0.3 % (0.0-7.0); HEMATOCRIT 35.4 % (42.0-52.0); LYMPHOCYTES # 1.4 10^3/ul (0.8-2.9); LYMPHOCYTES % 11.5 % (15.0-51.0); MEAN CORPUSCULAR HEMOGLOBIN 30.6 pg (29.0-33.0); MEAN CORPUSCULAR HGB CONC 31.1 g/dl (32.0-37.0); MEAN CORPUSCULAR VOLUME 98.6 fl (82.0-101.0); MEAN PLATELET VOLUME 11.5 fl (7.4-10.4); MONOCYTE # 1.1 10^3/ul (0.3-0.9); MONOCYTES % 8.7 % (0.0-11.0); NEUTROPHIL # 9.4 10^3/ul (1.6-7.5); NEUTROPHILS % 77.2 % (39.0-77.0); PLATELET COUNT 468 10^3/UL (140-415); RED BLOOD COUNT 3.59 10^6/ul (4.70-6.10); RED CELL DISTRIBUTION WIDTH 12.6 % (11.5-14.5)
[2018-08-26 14:33] LABS: WHITE BLOOD COUNT 12.2 10^3/ul (4.8-10.8)
[2018-08-26 14:55] LABS: ANION GAP 11 (5-13); BLOOD UREA NITROGEN 76 mg/dl (7-20); CALCIUM 9.6 mg/dl (8.4-10.2); CARBON DIOXIDE 22 mmol/L (21-31); CHLORIDE 112 mmol/L (97-110); CREATININE 3.05 mg/dl (0.61-1.24); Estimated GFR 21 mL/min (>60); GLUCOSE 107 mg/dl (70-220); POTASSIUM 5.4 mmol/L (3.5-5.1); SODIUM 145 mmol/L (135-144)
[2018-08-26] MEDS: PHENOBARBITAL 32.4 MG TAB PO (21:33)
[2018-08-27] MEDS: DEXTROSE 5% 1,000 ML IV (08:52)
[2018-08-27] MEDS: MULTIVITAMINS THERAPEUTIC TAB PO (08:52)
[2018-08-27] MEDS: APIXABAN 5 MG TABLET PO (08:52)
[2018-08-27] MEDS: AMLODIPINE 10 MG TAB PO (08:52)
[2018-08-27] MEDS: METOPROLOL 25 MG TAB PO (08:53)
[2018-08-27 13:50] LABS: ADD MAN DIFF? NO
[2018-08-27 13:52] LABS: BASOPHIL # 0.1 10^3/ul (0.0-0.1); BASOPHILS % 0.4 % (0.0-2.0); EOSINOPHILS # 0.1 10^3/ul (0.0-0.5); EOSINOPHILS % 0.7 % (0.0-7.0); HEMATOCRIT 34.3 % (42.0-52.0); HEMOGLOBIN 10.6 g/dl (14.0-18.0); LYMPHOCYTES # 1.6 10^3/ul (0.8-2.9); LYMPHOCYTES % 12.5 % (15.0-51.0); MEAN CORPUSCULAR HEMOGLOBIN 30.5 pg (29.0-33.0); MEAN CORPUSCULAR HGB CONC 30.9 g/dl (32.0-37.0); MEAN CORPUSCULAR VOLUME 98.8 fl (82.0-101.0); MEAN PLATELET VOLUME 10.7 fl (7.4-10.4); MONOCYTES % 8.1 % (0.0-11.0); NEUTROPHIL # 9.6 10^3/ul (1.6-7.5); NEUTROPHILS % 76.6 % (39.0-77.0); PLATELET COUNT 496 10^3/UL (140-415); RED BLOOD COUNT 3.47 10^6/ul (4.70-6.10); RED CELL DISTRIBUTION WIDTH 12.7 % (11.5-14.5)
[2018-08-27 13:52] LABS: WHITE BLOOD COUNT 12.5 10^3/ul (4.8-10.8)
[2018-08-27 14:12] LABS: ANION GAP 13 (5-13); BLOOD UREA NITROGEN 75 mg/dl (7-20); CALCIUM 9.3 mg/dl (8.4-10.2); CARBON DIOXIDE 22 mmol/L (21-31); CHLORIDE 108 mmol/L (97-110); CREATININE 2.97 mg/dl (0.61-1.24); Estimated GFR 21 mL/min (>60); GLUCOSE 138 mg/dl (70-220); MAGNESIUM 2.8 mg/dl (1.7-2.5); PHOSPHORUS 4.8 mg/dl (2.5-4.9); POTASSIUM 5.3 mmol/L (3.5-5.1); SODIUM 143 mmol/L (135-144)
[2018-08-27] MEDS: NA POLYST SULFON 15 GM/60 ML BTL PO (15:06)
== END 2018-08-27 18:08 | DRG 100 ==
LOC: 6WM 08-06 09:00 → TEL 08-07 20:33 → PP2 08-19 17:00 → 6WM 03:09
PROVIDERS: Family Medicine
DX: G40.409 Other generalized epilepsy and epileptic syndromes, not intractable, without status epilepticus (principal); G92 Toxic encephalopathy; G93.6 Cerebral edema; J18.9 Pneumonia, unspecified organism; N17.9 Acute kidney failure, unspecified; I82.623 Acute embolism and thrombosis of deep veins of upper extremity, bilateral; N18.4 Chronic kidney disease, stage 4 (severe); I69.351 Hemiplegia and hemiparesis following cerebral infarction affecting right dominant side; Q61.3 Polycystic kidney, unspecified; R06.3 Periodic breathing; E87.0 Hyperosmolality and hypernatremia; E87.5 Hyperkalemia; I69.321 Dysphasia following cerebral infarction; D63.1 Anemia in chronic kidney disease; I12.9 Hypertensive chronic kidney disease with stage 1 through stage 4 chronic kidney disease, or unspecified chronic kidney disease; M10.9 Gout, unspecified; N52.9 Male erectile dysfunction, unspecified; R50.9 Fever, unspecified; Z91.14 Patient's other noncompliance with medication regimen; Z87.891 Personal history of nicotine dependence
CPT/HCPCS: 70450; 70551; 71045; 71046; 73520; 73610; 76775; 80048; 80053; 80061; 80184; 80185; 80202; 81001; 81003; 82043; 82140; 82570; 82595; 83036; 83735; 83880; 83930; 83935; 84100; 84132; 84155; 84300; 84443; 84560; 85025; 85651; 86021; 86038; 86160; 86226; 86430; 86692; 86704; 86706; 86708; 86709; 86803; 87040; 87081; 87086; 87340; 89190; 93005; 93306; 93970; 95819; 97110; 97116; 97162; 97167; 97530; 97535

== ENCOUNTER 2018-08-27 18:16 | Inpatient (IN) | payer MEDICARE, BC ==
[2018-08-27] MEDS ORDERED: ONDANSETRON 4 MG INJ IV (18:30)
[2018-08-27] MEDS ORDERED: BISACODYL (EC) 5 MG TAB PO (18:30)
[2018-08-27] MEDS ORDERED: LORAZEPAM 4 MG/ML VIAL IV (18:30)
[2018-08-27] MEDS ORDERED: hydrALAzine 20 MG INJ IV (18:30)
[2018-08-27] MEDS ORDERED: DOCUSATE SODIUM 100 MG CAP PO (18:30)
[2018-08-27] MEDS: APIXABAN 5 MG TABLET PO (20:57)
[2018-08-27] MEDS: ACETAMINOPHEN 325 MG TAB PO (20:57)
[2018-08-27] MEDS: METOPROLOL 25 MG TAB PO (20:57)
[2018-08-27] MEDS: DEXTROSE 5% 1,000 ML IV (20:58)
[2018-08-27] MEDS: PHENOBARBITAL 32.4 MG TAB PO (21:23)
[2018-08-28 00:35] LABS: ADD UMIC NO; UR ASCORBIC ACID NEGATIVE (NEGATIVE); UR BILIRUBIN (Dip) NEGATIVE (NEGATIVE); UR BLOOD (Dip) NEGATIVE (NEGATIVE); UR CLARITY CLEAR (CLEAR); UR COLOR YELLOW (YELLOW); UR GLUCOSE (Dip) NEGATIVE (NEGATIVE); UR KETONES (Dip) NEGATIVE (NEGATIVE); UR LEUKOCYTE ESTERASE (Dip) NEGATIVE Leu/ul (NEGATIVE); UR NITRITE (Dip) NEGATIVE (NEGATIVE); UR TOTAL PROTEIN (Dip) NEGATIVE (NEGATIVE); UR UROBILINOGEN (Dip) NEGATIVE (NEGATIVE)
[2018-08-28 07:40] LABS: ADD MAN DIFF? NO
[2018-08-28 07:43] LABS: BASOPHILS % 0.4 % (0.0-2.0); EOSINOPHILS # 0.1 10^3/ul (0.0-0.5); EOSINOPHILS % 1.2 % (0.0-7.0); HEMATOCRIT 33.4 % (42.0-52.0); HEMOGLOBIN 10.5 g/dl (14.0-18.0); LYMPHOCYTES # 1.9 10^3/ul (0.8-2.9); LYMPHOCYTES % 20.7 % (15.0-51.0); MEAN CORPUSCULAR HGB CONC 31.4 g/dl (32.0-37.0); MEAN CORPUSCULAR VOLUME 98.5 fl (82.0-101.0); MEAN PLATELET VOLUME 10.6 fl (7.4-10.4); MONOCYTE # 0.8 10^3/ul (0.3-0.9); MONOCYTES % 8.6 % (0.0-11.0); NEUTROPHIL # 6.3 10^3/ul (1.6-7.5); NEUTROPHILS % 67.5 % (39.0-77.0); PLATELET COUNT 443 10^3/UL (140-415); RED BLOOD COUNT 3.39 10^6/ul (4.70-6.10); RED CELL DISTRIBUTION WIDTH 12.4 % (11.5-14.5)
[2018-08-28 07:43] LABS: WHITE BLOOD COUNT 9.3 10^3/ul (4.8-10.8)
[2018-08-28 08:15] LABS: ALANINE AMINOTRANSFERASE 35 IU/L (13-69); ALBUMIN/GLOBULIN RATIO 0.83; ALKALINE PHOSPHATASE 74 IU/L (42-121); ANION GAP 12 (5-13); ASPARTATE AMINO TRANSFERASE 31 IU/L (15-46); BILIRUBIN,INDIRECT 0.3 mg/dl (0-1.1); BILIRUBIN,TOTAL 0.3 mg/dl (0.2-1.3); BLOOD UREA NITROGEN 68 mg/dl (7-20); CALCIUM 9.2 mg/dl (8.4-10.2); CARBON DIOXIDE 26 mmol/L (21-31); CHLORIDE 105 mmol/L (97-110); CREATININE 2.91 mg/dl (0.61-1.24); Estimated GFR 22 mL/min (>60); GLUCOSE 100 mg/dl (70-220); POTASSIUM 4.3 mmol/L (3.5-5.1); SODIUM 143 mmol/L (135-144); TOTAL PROTEIN 6.6 g/dl (6.1-8.1)
[2018-08-28] MEDS: METOPROLOL 25 MG TAB PO ×2 (09:38→21:22)
[2018-08-28] MEDS: APIXABAN 5 MG TABLET PO ×2 (09:38→21:22)
[2018-08-28] MEDS: MULTIVITAMINS THERAPEUTIC TAB PO (09:38)
[2018-08-28] MEDS: AMLODIPINE 10 MG TAB PO (13:37)
[2018-08-28] MEDS: PHENOBARBITAL 32.4 MG TAB PO (21:21)
[2018-08-29] MEDS: AMLODIPINE 10 MG TAB PO (09:14)
[2018-08-29] MEDS: MULTIVITAMINS THERAPEUTIC TAB PO (09:14)
[2018-08-29] MEDS: APIXABAN 5 MG TABLET PO ×2 (09:14→21:29)
[2018-08-29] MEDS: METOPROLOL 25 MG TAB PO ×2 (10:00→21:30)
[2018-08-29] MEDS: PHENOBARBITAL 32.4 MG TAB PO (21:29)
[2018-08-30] MEDS: AMLODIPINE 10 MG TAB PO (08:56)
[2018-08-30] MEDS: MULTIVITAMINS THERAPEUTIC TAB PO (08:56)
[2018-08-30] MEDS: APIXABAN 5 MG TABLET PO ×2 (08:57→20:11)
[2018-08-30] MEDS: METOPROLOL 25 MG TAB PO ×2 (08:57→20:11)
[2018-08-30 11:15] LABS: ADD MAN DIFF? NO
[2018-08-30 11:17] LABS: BASOPHIL # 0.1 10^3/ul (0.0-0.1); BASOPHILS % 0.5 % (0.0-2.0); EOSINOPHILS # 0.1 10^3/ul (0.0-0.5); EOSINOPHILS % 0.8 % (0.0-7.0); HEMATOCRIT 35.6 % (42.0-52.0); HEMOGLOBIN 11.2 g/dl (14.0-18.0); LYMPHOCYTES # 1.6 10^3/ul (0.8-2.9); MEAN CORPUSCULAR HEMOGLOBIN 30.9 pg (29.0-33.0); MEAN CORPUSCULAR HGB CONC 31.5 g/dl (32.0-37.0); MEAN CORPUSCULAR VOLUME 98.1 fl (82.0-101.0); MEAN PLATELET VOLUME 10.8 fl (7.4-10.4); MONOCYTES % 9.7 % (0.0-11.0); NEUTROPHIL # 7.4 10^3/ul (1.6-7.5); NEUTROPHILS % 71.6 % (39.0-77.0); PLATELET COUNT 447 10^3/UL (140-415); RED BLOOD COUNT 3.63 10^6/ul (4.70-6.10); RED CELL DISTRIBUTION WIDTH 12.9 % (11.5-14.5)
[2018-08-30 11:17] LABS: WHITE BLOOD COUNT 10.3 10^3/ul (4.8-10.8)
[2018-08-30 11:34] LABS: ALANINE AMINOTRANSFERASE 43 IU/L (13-69); ALBUMIN 3.3 g/dl (3.3-4.9); ALBUMIN/GLOBULIN RATIO 0.91; ALKALINE PHOSPHATASE 78 IU/L (42-121); ANION GAP 8 (5-13); ASPARTATE AMINO TRANSFERASE 36 IU/L (15-46); BILIRUBIN,INDIRECT 0.1 mg/dl (0-1.1); BILIRUBIN,TOTAL 0.1 mg/dl (0.2-1.3); BLOOD UREA NITROGEN 71 mg/dl (7-20); CALCIUM 9.4 mg/dl (8.4-10.2); CARBON DIOXIDE 24 mmol/L (21-31); CHLORIDE 110 mmol/L (97-110); CREATININE 2.83 mg/dl (0.61-1.24); Estimated GFR 23 mL/min (>60); GLUCOSE 121 mg/dl (70-220); MAGNESIUM 2.5 mg/dl (1.7-2.5); POTASSIUM 4.8 mmol/L (3.5-5.1); SODIUM 142 mmol/L (135-144); TOTAL PROTEIN 6.9 g/dl (6.1-8.1)
[2018-08-30] MEDS: PHENOBARBITAL 32.4 MG TAB PO (20:11)
[2018-08-31 07:15] LABS: ADD MAN DIFF? NO
[2018-08-31 07:18] LABS: WHITE BLOOD COUNT 10.9 10^3/ul (4.8-10.8)
[2018-08-31 07:18] LABS: BASOPHIL # 0.1 10^3/ul (0.0-0.1); BASOPHILS % 0.5 % (0.0-2.0); EOSINOPHILS # 0.1 10^3/ul (0.0-0.5); EOSINOPHILS % 0.7 % (0.0-7.0); HEMATOCRIT 35.5 % (42.0-52.0); HEMOGLOBIN 11.1 g/dl (14.0-18.0); LYMPHOCYTES # 1.5 10^3/ul (0.8-2.9); LYMPHOCYTES % 13.3 % (15.0-51.0); MEAN CORPUSCULAR HEMOGLOBIN 30.6 pg (29.0-33.0); MEAN CORPUSCULAR HGB CONC 31.3 g/dl (32.0-37.0); MEAN CORPUSCULAR VOLUME 97.8 fl (82.0-101.0); MEAN PLATELET VOLUME 10.5 fl (7.4-10.4); MONOCYTE # 0.8 10^3/ul (0.3-0.9); MONOCYTES % 7.5 % (0.0-11.0); NEUTROPHIL # 8.3 10^3/ul (1.6-7.5); PLATELET COUNT 450 10^3/UL (140-415); RED BLOOD COUNT 3.63 10^6/ul (4.70-6.10); RED CELL DISTRIBUTION WIDTH 13.2 % (11.5-14.5)
[2018-08-31] MEDS: MULTIVITAMINS THERAPEUTIC TAB PO (07:48)
[2018-08-31] MEDS: AMLODIPINE 10 MG TAB PO (07:48)
[2018-08-31] MEDS: APIXABAN 5 MG TABLET PO ×2 (07:48→21:02)
[2018-08-31 07:49] LABS: ANION GAP 14 (5-13); BLOOD UREA NITROGEN 67 mg/dl (7-20); CALCIUM 9.5 mg/dl (8.4-10.2); CARBON DIOXIDE 24 mmol/L (21-31); CHLORIDE 110 mmol/L (97-110); Estimated GFR 25 mL/min (>60); GLUCOSE 106 mg/dl (70-220); MAGNESIUM 2.5 mg/dl (1.7-2.5); PHOSPHORUS 4.3 mg/dl (2.5-4.9); POTASSIUM 4.6 mmol/L (3.5-5.1); SODIUM 148 mmol/L (135-144)
[2018-08-31] MEDS: METOPROLOL 25 MG TAB PO ×2 (07:49→21:06)
[2018-08-31] MEDS: LACOSAMIDE (100 MG/10 ML PO SYR) PO (21:00)
[2018-08-31] MEDS: PHENOBARBITAL 32.4 MG TAB PO (21:03)
[2018-09-01] MEDS: LACOSAMIDE (100 MG/10 ML PO SYR) PO ×2 (09:00→20:30)
[2018-09-01] MEDS: AMLODIPINE 10 MG TAB PO (09:12)
[2018-09-01] MEDS: MULTIVITAMINS THERAPEUTIC TAB PO (09:12)
[2018-09-01] MEDS: METOPROLOL 25 MG TAB PO ×2 (09:12→20:29)
[2018-09-01] MEDS: APIXABAN 5 MG TABLET PO ×2 (09:12→20:28)
[2018-09-01 11:14] LABS: ANION GAP 14 (5-13); BLOOD UREA NITROGEN 56 mg/dl (7-20); CALCIUM 9.7 mg/dl (8.4-10.2); CARBON DIOXIDE 22 mmol/L (21-31); CHLORIDE 111 mmol/L (97-110); CREATININE 2.65 mg/dl (0.61-1.24); Estimated GFR 24 mL/min (>60); GLUCOSE 120 mg/dl (70-220); POTASSIUM 4.4 mmol/L (3.5-5.1); SODIUM 147 mmol/L (135-144)
[2018-09-01] MEDS: PHENOBARBITAL 32.4 MG TAB PO (20:29)
[2018-09-02] MEDS: METOPROLOL 25 MG TAB PO ×2 (08:56→21:00)
[2018-09-02] MEDS: MULTIVITAMINS THERAPEUTIC TAB PO (08:56)
[2018-09-02] MEDS: AMLODIPINE 10 MG TAB PO (08:56)
[2018-09-02] MEDS: LACOSAMIDE (100 MG/10 ML PO SYR) PO ×2 (08:56→21:26)
[2018-09-02] MEDS: APIXABAN 5 MG TABLET PO ×2 (08:56→21:25)
[2018-09-02] MEDS: PHENOBARBITAL 32.4 MG TAB PO (21:26)
[2018-09-03] MEDS: APIXABAN 5 MG TABLET PO (08:46)
[2018-09-03] MEDS: MULTIVITAMINS THERAPEUTIC TAB PO (08:46)
[2018-09-03] MEDS: LACOSAMIDE (100 MG/10 ML PO SYR) PO ×2 (08:46→20:47)
[2018-09-03] MEDS: AMLODIPINE 10 MG TAB PO (08:47)
[2018-09-03] MEDS: METOPROLOL 25 MG TAB PO ×2 (08:47→20:47)
[2018-09-03] MEDS: ACYCLOVIR IVPB ×2 (12:00)
[2018-09-03] MEDS: SOD CHLORIDE 0.9% IVPB ×2 (12:00)
[2018-09-03 14:24] LABS: INR 1.41; PROTIME 17.4 Sec (11.9-14.9); PT RATIO 1.4
[2018-09-03 14:25] LABS: PARTIAL THROMBOPLASTIN TIME 34.9 Sec (23.0-35.0)
[2018-09-03] MEDS: PHENOBARBITAL 32.4 MG TAB PO (20:47)
[2018-09-03] MEDS: HEPARIN 5,000 UNIT/1 ML VIAL SC (20:49)
[2018-09-04 07:09] LABS: ADD MAN DIFF? NO
[2018-09-04 07:11] LABS: WHITE BLOOD COUNT 9.3 10^3/ul (4.8-10.8)
[2018-09-04 07:11] LABS: BASOPHIL # 0.1 10^3/ul (0.0-0.1); BASOPHILS % 0.5 % (0.0-2.0); EOSINOPHILS # 0.1 10^3/ul (0.0-0.5); EOSINOPHILS % 0.8 % (0.0-7.0); HEMATOCRIT 31.9 % (42.0-52.0); HEMOGLOBIN 10.1 g/dl (14.0-18.0); LYMPHOCYTES # 1.5 10^3/ul (0.8-2.9); LYMPHOCYTES % 15.8 % (15.0-51.0); MEAN CORPUSCULAR HEMOGLOBIN 30.7 pg (29.0-33.0); MEAN CORPUSCULAR HGB CONC 31.7 g/dl (32.0-37.0); MEAN PLATELET VOLUME 10.3 fl (7.4-10.4); MONOCYTE # 0.9 10^3/ul (0.3-0.9); MONOCYTES % 9.9 % (0.0-11.0); NEUTROPHIL # 6.7 10^3/ul (1.6-7.5); NEUTROPHILS % 71.5 % (39.0-77.0); PLATELET COUNT 298 10^3/UL (140-415); RED BLOOD COUNT 3.29 10^6/ul (4.70-6.10); RED CELL DISTRIBUTION WIDTH 13.7 % (11.5-14.5)
[2018-09-04 07:37] LABS: ANION GAP 12 (5-13); BLOOD UREA NITROGEN 70 mg/dl (7-20); CALCIUM 9.1 mg/dl (8.4-10.2); CARBON DIOXIDE 22 mmol/L (21-31); CHLORIDE 110 mmol/L (97-110); CREATININE 2.61 mg/dl (0.61-1.24); Estimated GFR 25 mL/min (>60); GLUCOSE 95 mg/dl (70-220); MAGNESIUM 2.3 mg/dl (1.7-2.5); PHOSPHORUS 3.3 mg/dl (2.5-4.9); POTASSIUM 3.8 mmol/L (3.5-5.1); SODIUM 144 mmol/L (135-144)
[2018-09-04] MEDS: HEPARIN 5,000 UNIT/1 ML VIAL SC (09:00)
[2018-09-04] MEDS: AMLODIPINE 10 MG TAB PO (09:00)
[2018-09-04] MEDS: LACOSAMIDE (100 MG/10 ML PO SYR) PO ×2 (09:00→21:00)
[2018-09-04] MEDS: METOPROLOL 25 MG TAB PO ×2 (09:00→21:00)
[2018-09-04] MEDS: MULTIVITAMINS THERAPEUTIC TAB PO (09:11)
[2018-09-04] MEDS ORDERED: LORAZEPAM 2 MG INJ IV (11:30)
[2018-09-04] MEDS: SOD CHLORIDE 0.9% IVPB ×2 (12:00)
[2018-09-04] MEDS: ACYCLOVIR IVPB ×2 (12:00)
[2018-09-04] MEDS ORDERED: LIDOCAINE 1% (MPF) 5 ML VIAL (13:24)
[2018-09-04] MEDS: PHENOBARBITAL 32.4 MG TAB PO (21:01)
[2018-09-05] MEDS: AMLODIPINE 10 MG TAB PO (08:32)
[2018-09-05] MEDS: METOPROLOL 25 MG TAB PO ×2 (08:32→20:33)
[2018-09-05] MEDS: LACOSAMIDE (100 MG/10 ML PO SYR) PO ×2 (08:33→20:33)
[2018-09-05] MEDS: MULTIVITAMINS THERAPEUTIC TAB PO (09:15)
[2018-09-05] MEDS: SOD CHLORIDE 0.9% IVPB ×3 (12:00→18:07)
[2018-09-05] MEDS: ACYCLOVIR IVPB ×3 (12:00→18:07)
[2018-09-05 12:40] LABS: INR 1.06; PROTIME 13.9 Sec (11.9-14.9); PT RATIO 1.1
[2018-09-05 16:16] LABS: CSF MN% 66.6 %; CSF PMN% 33.4 %; CSF RBC 1000 /uL (0-0); CSF WBC 3 /cmm (0-10)
[2018-09-05 16:18] LABS: CSF RBC 0 /uL (0-0); CSF WBC 1 /cmm (0-10)
[2018-09-05 16:20] LABS: GLUCOSE,CSF 70 mg/dl (50-80)
[2018-09-05 16:20] LABS: TOTAL PROTEIN,CSF 63 mg/dl (12-60)
[2018-09-05 16:21] LABS: CSF CLARITY SLIGHTLY HAZY; CSF COLOR PINKISH
[2018-09-05 16:22] LABS: CSF COLOR COLORLESS
[2018-09-05 16:22] LABS: CSF CLARITY CLEAR; CSF VOLUME 10.3 ml; CSF#TUBE COUNT TUBE#1; CSF#TUBES REC'D 4
[2018-09-05 16:23] LABS: CSF VOLUME 10.3 ml; CSF#TUBE COUNT TUBE#4; CSF#TUBES REC'D 4
[2018-09-05] MEDS: PHENOBARBITAL 32.4 MG TAB PO (20:32)
[2018-09-06] MEDS: ACYCLOVIR IVPB ×3 (00:24→23:54)
[2018-09-06] MEDS: SOD CHLORIDE 0.9% IVPB ×3 (00:24→23:54)
[2018-09-06] MEDS: ACETAMINOPHEN 325 MG TAB PO ×3 (03:55→13:47)
[2018-09-06] MEDS: METOPROLOL 25 MG TAB PO ×2 (09:27→20:44)
[2018-09-06] MEDS: MULTIVITAMINS THERAPEUTIC TAB PO (09:27)
[2018-09-06] MEDS: AMLODIPINE 10 MG TAB PO (09:28)
[2018-09-06] MEDS: LACOSAMIDE (100 MG/10 ML PO SYR) PO ×2 (09:30→20:43)
[2018-09-06] MEDS: PHENOBARBITAL 32.4 MG TAB PO (20:44)
[2018-09-07] MEDS: ACETAMINOPHEN 325 MG TAB PO ×2 (06:54→22:31)
[2018-09-07] MEDS: LACOSAMIDE (100 MG/10 ML PO SYR) PO ×2 (09:18→20:34)
[2018-09-07] MEDS: AMLODIPINE 10 MG TAB PO (09:19)
[2018-09-07] MEDS: METOPROLOL 25 MG TAB PO ×2 (09:20→20:34)
[2018-09-07] MEDS: MULTIVITAMINS THERAPEUTIC TAB PO (09:49)
[2018-09-07] MEDS: SOD CHLORIDE 0.9% IVPB (15:34)
[2018-09-07] MEDS: ACYCLOVIR IVPB (15:34)
[2018-09-07] MEDS: PHENOBARBITAL 32.4 MG TAB PO (20:34)
[2018-09-07] MEDS: APIXABAN 5 MG TABLET PO (22:32)
[2018-09-08 06:23] LABS: ADD MAN DIFF? NO
[2018-09-08 06:27] LABS: BASOPHILS % 0.4 % (0.0-2.0); EOSINOPHILS # 0.1 10^3/ul (0.0-0.5); EOSINOPHILS % 0.6 % (0.0-7.0); HEMATOCRIT 32.5 % (42.0-52.0); HEMOGLOBIN 10.1 g/dl (14.0-18.0); LYMPHOCYTES # 1.5 10^3/ul (0.8-2.9); LYMPHOCYTES % 14.1 % (15.0-51.0); MEAN CORPUSCULAR HEMOGLOBIN 30.7 pg (29.0-33.0); MEAN CORPUSCULAR HGB CONC 31.1 g/dl (32.0-37.0); MEAN CORPUSCULAR VOLUME 98.8 fl (82.0-101.0); MEAN PLATELET VOLUME 10.9 fl (7.4-10.4); MONOCYTE # 1.1 10^3/ul (0.3-0.9); MONOCYTES % 10.5 % (0.0-11.0); NEUTROPHILS % 73.5 % (39.0-77.0); PLATELET COUNT 227 10^3/UL (140-415); RED BLOOD COUNT 3.29 10^6/ul (4.70-6.10); RED CELL DISTRIBUTION WIDTH 14.3 % (11.5-14.5)
[2018-09-08 06:27] LABS: WHITE BLOOD COUNT 10.8 10^3/ul (4.8-10.8)
[2018-09-08 06:55] LABS: ANION GAP 13 (5-13); BLOOD UREA NITROGEN 62 mg/dl (7-20); CALCIUM 9.3 mg/dl (8.4-10.2); CARBON DIOXIDE 21 mmol/L (21-31); CHLORIDE 113 mmol/L (97-110); CREATININE 2.38 mg/dl (0.61-1.24); Estimated GFR 27 mL/min (>60); GLUCOSE 103 mg/dl (70-220); MAGNESIUM 2.3 mg/dl (1.7-2.5); PHOSPHORUS 4.1 mg/dl (2.5-4.9); POTASSIUM 4.7 mmol/L (3.5-5.1); SODIUM 147 mmol/L (135-144)
[2018-09-08] MEDS: MULTIVITAMINS THERAPEUTIC TAB PO (08:40)
[2018-09-08] MEDS: APIXABAN 5 MG TABLET PO ×2 (08:41→21:00)
[2018-09-08] MEDS: LACOSAMIDE (100 MG/10 ML PO SYR) PO ×2 (08:41→21:01)
[2018-09-08] MEDS: METOPROLOL 25 MG TAB PO ×2 (08:41→21:01)
[2018-09-08] MEDS: AMLODIPINE 10 MG TAB PO (09:57)
[2018-09-08] MEDS: ACYCLOVIR IVPB ×3 (12:00→17:27)
[2018-09-08] MEDS: SOD CHLORIDE 0.9% IVPB ×3 (12:00→17:27)
[2018-09-08 15:42] LABS: HERPES SIMPLEX 1 DNA NOT DETECTED; HERPES SIMPLEX 2 DNA NOT DETECTED; HERPES SIMPLEX PCR SOURCE CEREBROSPINAL FLUID
[2018-09-08] MEDS: PHENOBARBITAL 32.4 MG TAB PO (21:00)
[2018-09-08] MEDS: DOXYCYCLINE 100 MG TAB PO (21:01)
[2018-09-09] MEDS: ACYCLOVIR IVPB ×2 (00:17→12:25)
[2018-09-09] MEDS: SOD CHLORIDE 0.9% IVPB ×2 (00:17→12:25)
[2018-09-09] MEDS: LEVOFLOXACIN 500 MG TAB PO (06:39)
[2018-09-09 07:39] LABS: ADD MAN DIFF? NO
[2018-09-09 07:45] LABS: BASOPHIL # 0.1 10^3/ul (0.0-0.1); BASOPHILS % 0.5 % (0.0-2.0); EOSINOPHILS # 0.1 10^3/ul (0.0-0.5); EOSINOPHILS % 1.5 % (0.0-7.0); HEMATOCRIT 32.7 % (42.0-52.0); LYMPHOCYTES # 1.6 10^3/ul (0.8-2.9); MEAN CORPUSCULAR HEMOGLOBIN 30.7 pg (29.0-33.0); MEAN CORPUSCULAR HGB CONC 30.6 g/dl (32.0-37.0); MEAN CORPUSCULAR VOLUME 100.3 fl (82.0-101.0); MEAN PLATELET VOLUME 11.1 fl (7.4-10.4); MONOCYTE # 0.8 10^3/ul (0.3-0.9); MONOCYTES % 8.7 % (0.0-11.0); NEUTROPHIL # 6.8 10^3/ul (1.6-7.5); NEUTROPHILS % 71.6 % (39.0-77.0); PLATELET COUNT 240 10^3/UL (140-415); RED BLOOD COUNT 3.26 10^6/ul (4.70-6.10); RED CELL DISTRIBUTION WIDTH 14.4 % (11.5-14.5)
[2018-09-09 07:45] LABS: WHITE BLOOD COUNT 9.5 10^3/ul (4.8-10.8)
[2018-09-09 08:04] LABS: ANION GAP 14 (5-13); BLOOD UREA NITROGEN 58 mg/dl (7-20); CALCIUM 9.4 mg/dl (8.4-10.2); CARBON DIOXIDE 22 mmol/L (21-31); CHLORIDE 111 mmol/L (97-110); CREATININE 2.36 mg/dl (0.61-1.24); Estimated GFR 28 mL/min (>60); GLUCOSE 119 mg/dl (70-220); MAGNESIUM 2.2 mg/dl (1.7-2.5); PHOSPHORUS 4.4 mg/dl (2.5-4.9); POTASSIUM 4.6 mmol/L (3.5-5.1); SODIUM 147 mmol/L (135-144)
[2018-09-09] MEDS: DOXYCYCLINE 100 MG TAB PO ×2 (09:19→20:14)
[2018-09-09] MEDS: MULTIVITAMINS THERAPEUTIC TAB PO (09:19)
[2018-09-09] MEDS: APIXABAN 5 MG TABLET PO ×2 (09:20→20:14)
[2018-09-09] MEDS: LACOSAMIDE (100 MG/10 ML PO SYR) PO ×2 (09:20→20:14)
[2018-09-09] MEDS: METOPROLOL 25 MG TAB PO ×2 (09:20→20:15)
[2018-09-09] MEDS: AMLODIPINE 10 MG TAB PO (11:16)
[2018-09-09 13:56] LABS: WEST NILE VIRUS ANTIBODY (IGG) <1.30 index; WEST NILE VIRUS ANTIBODY (IGM) <0.90 index
[2018-09-09 16:21] LABS: VDRL, CSF NON-REACTIVE
[2018-09-09] MEDS: PHENOBARBITAL 32.4 MG TAB PO (20:14)
[2018-09-10] MEDS: LEVOFLOXACIN 250 MG TAB PO (06:17)
[2018-09-10] MEDS: LACOSAMIDE (100 MG/10 ML PO SYR) PO (09:38)
[2018-09-10] MEDS: DOXYCYCLINE 100 MG TAB PO (09:39)
[2018-09-10] MEDS: MULTIVITAMINS THERAPEUTIC TAB PO (09:39)
[2018-09-10] MEDS: METOPROLOL 25 MG TAB PO (09:39)
[2018-09-10] MEDS: AMLODIPINE 10 MG TAB PO (09:39)
[2018-09-10] MEDS: APIXABAN 5 MG TABLET PO (09:40)
[2018-09-10] MEDS ORDERED: IMMUNE GLOBULIN IV (17:00)
[2018-09-10] MEDS ORDERED: EVAC CONTAINER IV (17:00)
[2018-09-10] MEDS ORDERED: ACETAMINOPHEN 500 MG TAB PO (17:00)
[2018-09-10] MEDS ORDERED: DIPHENHYDRAMINE 50 MG INJ IV (17:00)
== END 2018-09-10 19:35 | disposition short-term general hospital (02) | DRG 945 ==
LOC: VRC 18:16 → 6WM 09-10 19:39 → VRC 09-10 19:39
PROC: F07Z5ZZ Bed Mobility Treatment (ICD-10-PCS; principal; 2018-08-28)
PROC: F07Z8ZZ Transfer Training Treatment (ICD-10-PCS; 2018-08-28)
PROC: F07Z9ZZ Gait Training/Functional Ambulation Treatment (ICD-10-PCS; 2018-08-28)
PROC: F08Z2ZZ Grooming/Personal Hygiene Treatment (ICD-10-PCS; 2018-08-28)
PROC: F08Z1ZZ Dressing Techniques Treatment (ICD-10-PCS; 2018-08-28)
PROC: F08Z0ZZ Bathing/Showering Techniques Treatment (ICD-10-PCS; 2018-08-28)
PROC: F06ZDZZ Swallowing Dysfunction Treatment (ICD-10-PCS; 2018-08-28)
PROC: 009U3ZX Drainage of Spinal Canal, Percutaneous Approach, Diagnostic (ICD-10-PCS; 2018-09-05)
PROC: B01BYZZ Fluoroscopy of Spinal Cord using Other Contrast (ICD-10-PCS; 2018-09-05)
DX: Z51.89 Encounter for other specified aftercare (principal); G93.6 Cerebral edema; J18.9 Pneumonia, unspecified organism; G92 Toxic encephalopathy; N17.9 Acute kidney failure, unspecified; I82.623 Acute embolism and thrombosis of deep veins of upper extremity, bilateral; N18.4 Chronic kidney disease, stage 4 (severe); E87.0 Hyperosmolality and hypernatremia; Q61.3 Polycystic kidney, unspecified; A86 Unspecified viral encephalitis; Z74.09 Other reduced mobility; D63.1 Anemia in chronic kidney disease; F06.8 Other specified mental disorders due to known physiological condition; F06.31 Mood disorder due to known physiological condition with depressive features; G40.909 Epilepsy, unspecified, not intractable, without status epilepticus; I12.9 Hypertensive chronic kidney disease with stage 1 through stage 4 chronic kidney disease, or unspecified chronic kidney disease; M10.9 Gout, unspecified; R53.1 Weakness; R41.82 Altered mental status, unspecified; R13.10 Dysphagia, unspecified; R06.03 Acute respiratory distress; Z87.891 Personal history of nicotine dependence; Z86.73 Personal history of transient ischemic attack (TIA), and cerebral infarction without residual deficits; Z79.01 Long term (current) use of anticoagulants
CPT/HCPCS: 70450; 70551; 71045; 71250; 74176; 80048; 80053; 81003; 82040; 82042; 82784; 82945; 83735; 83873; 83916; 84100; 84157; 85025; 85610; 85730; 86592; 86788; 86789; 87040; 87070; 87081; 87086; 87529; 89051; 92507; 92523; 92610; 93970; 95819; 97110; 97112; 97116; 97150; 97163; 97167; 97530; 97535; 97542